=== PATIENT | male | born 1965 | race Caucasian/White ===

== ENCOUNTER 2019-06-10 16:21 | Emergency (ER) | payer MEDICAID, OTHER ==
[~2019-06-10 16:21] MED LIST: Ondansetron 4 MG Tab.DIS PO ONE
[2019-06-10] MEDS ORDERED: Prochlorperazine 10 MG/2 ML SDV IVPUSH ONE (16:33)
[2019-06-10] MEDS ORDERED: Sodium Chloride 0.9% 1,000 ML IV ONE (16:34)
[2019-06-10] MEDS ORDERED: diphenhydrAMINE 50 MG/ML SDV IVPUSH ONE (16:34)
--- NOTE | 2019-06-10 16:49 | EDM.PDOC ---
ED HPI GENERAL MEDICAL PROBLEM - General Chief Complaint: General Stated Complaint: DIZZINESS, VOMITING Time Seen by Provider: 06/10/19 16:30 Source of Information: Reports: Patient History Limitations: Reports: No Limitations - History of Present Illness INITIAL COMMENTS - FREE TEXT/NARRATIVE: John presents via EMS due to vomiting. He was well until about 40 minutes prior to arrival, when he had sudden onset of vertigo while standing in [place] friends. This lasted a few seconds, and has recurred 3 more times, and is associated with significant nausea. He denies headache, balance changes , paresthesias, or sensory deficit at all. He states that he is really worried about a brainstem stroke. 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 He denies any other cardiac history, in addition to prior CVA. John amoxicillin allergy was identified as a child. He denies other surgical history. He has not been ill at all, but has been exposed to several others with flu-type symptoms. He denies fever, myalgias, and h/a at all. No gi/gu sx's or abdominal pain. Has chronic pedal edema unchanged. No arthralgias, diaphoresis , angina, or shortness of breath. He ate eggs and sausage for breakfast, a sandwich for lunch, took a nap, and ate a large amount of candy. - Related Data Allergies Allergy/AdvReac Type Severity Reaction Status Date / Time amoxicillin Allergy Other Verified 06/10/19 16:33 ED ROS GENERAL - Review of Systems Review Of Systems: Comprehensive ROS is negative, except as noted in HPI. ED EXAM, GENERAL - Physical Exam Exam: See Below Exam Limited By: No Limitations General Appearance: Alert, WD/WN, No Apparent Distress Eye Exam: Bilateral Eye: EOMI, PERRL, Other (no nystagmus with Hallpike-Zain maneuvers) Ears: Normal External Exam, Normal Canal, Hearing Grossly Normal, Normal TMs Nose: Normal Inspection, Normal Mucosa Throat/Mouth: Normal Inspection, Normal Oropharynx, Normal Voice Head: Atraumatic, Normocephalic Neck: Normal Inspection, Supple, Non-Tender, Full Range of Motion Respiratory/Chest: No Respiratory Distress, Lungs Clear, Normal Breath Sounds Cardiovascular: Regular Rate, Rhythm, No Murmur GI/Abdominal: Normal Bowel Sounds, Soft, Non-Tender Back Exam: Normal Inspection, Full Range of Motion Extremities: Normal Inspection, Normal Range of Motion, Non-Tender, Pedal Edema (mild) Neurological: Alert, Oriented, CN II-XII Intact, Normal Cognition, No Motor/ Sensory Deficits Psychiatric: Anxious Skin Exam: Warm, Dry, Intact Lymphatic: No Adenopathy Course - Vital Signs Last Recorded V/S: Last Vital Signs Temp 98.3 F 06/10/19 17:56 Pulse 92 06/10/19 17:56 Resp 16 06/10/19 17:56 BP 126/60 06/10/19 17:56 Pulse Ox 95 06/10/19 17:56 - Orders/Labs/Meds Orders: Active Orders 24 hr Category Date Time Status EKG Documentation Completion [RC] ASDIRECTED Care 06/10/19 18:00 Active Labs: Laboratory Tests 06/10/19 06/10/19 06/10/19 Range/Units 16:30 16:30 16:30 WBC 8.6 (4.0-11.0) K/uL RBC 4.93 (4.50-6.50) M/uL Hgb 15.7 (13.0-18.0) g/dL Hct 45.0 (40.0-54.0) % MCV 91 (76-96) fL MCH 31.8 (27.0-32.0) pg MCHC 34.9 (31.0-35.0) g/dL RDW 12.4 (11.0-16.0) % Plt Count 251 (150-400) K/uL MPV 9.1 (6.0-10.0) fL Neut % (Auto) 57.5 (45.0-70.0) % Lymph % (Auto) 27.1 (20.0-40.0) % Luce % (Auto) 11.6 H (3.0-10.0) % Eos % (Auto) 3.4 (1.0-5.0) % Baso % (Auto) 0.4 (0.0-0.5) % Neut # (Auto) 4.93 (2.00-7.50) K/uL Lymph # (Auto) 2.32 (1.50-4.00) K/uL Luce # (Auto) 0.99 H (0.20-0.80) K/uL Eos # (Auto) 0.29 (0.04-0.40) K/uL Baso # (Auto) 0.03 (0.02-0.10) K/uL Sodium 142 (136-145) mmol/L Potassium 4.0 (3.5-5.1) mmol/L Chloride 105 (98-107) mmol/L Carbon Dioxide 24.3 (21.0-32.0) mmol/L Anion Gap 16.7 H (5.0-15.0) mmol/L BUN 17 (8-26) mg/dL Creatinine 0.87 (0.70-1.30) mg/dL Est Cr Clr Drug Dosing 3.63 mL/min Estimated GFR (MDRD) > 60 (>60) MLS/MIN BUN/Creatinine Ratio 19.5 (6-25) Glucose 136 H (74-100) mg/dL Calcium 8.9 (8.5-10.1) mg/dL Total Bilirubin 0.3 (0.0-1.0) mg/dL AST 26 (15-37) U/L ALT 35 (12-78) U/L Alkaline Phosphatase 106 (46-116) U/L Troponin I < 0.017 (0.000-0.060) ng/mL C-Reactive Protein 5.3 H (0.0-3.0) mg/L Total Protein 7.4 (6.4-8.2) g/dL Albumin 3.9 (3.4-5.0) g/dL Globulin 3.5 (2.2-4.2) g/dL Albumin/Globulin Ratio 1.1 (0.8-2.0) 06/10/19 Range/Units 18:00 WBC (4.0-11.0) K/uL RBC (4.50-6.50) M/uL Hgb (13.0-18.0) g/dL Hct (40.0-54.0) % MCV (76-96) fL MCH (27.0-32.0) pg MCHC (31.0-35.0) g/dL RDW (11.0-16.0) % Plt Count (150-400) K/uL MPV (6.0-10.0) fL Neut % (Auto) (45.0-70.0) % Lymph % (Auto) (20.0-40.0) % Luce % (Auto) (3.0-10.0) % Eos % (Auto) (1.0-5.0) % Baso % (Auto) (0.0-0.5) % Neut # (Auto) (2.00-7.50) K/uL Lymph # (Auto) (1.50-4.00) K/uL Luce # (Auto) (0.20-0.80) K/uL Eos # (Auto) (0.04-0.40) K/uL Baso # (Auto) (0.02-0.10) K/uL Sodium (136-145) mmol/L Potassium (3.5-5.1) mmol/L Chloride (98-107) mmol/L Carbon Dioxide (21.0-32.0) mmol/L Anion Gap (5.0-15.0) mmol/L BUN (8-26) mg/dL Creatinine (0.70-1.30) mg/dL Est Cr Clr Drug Dosing mL/min Estimated GFR (MDRD) (>60) MLS/MIN BUN/Creatinine Ratio (6-25) Glucose (74-100) mg/dL Calcium (8.5-10.1) mg/dL Total Bilirubin (0.0-1.0) mg/dL AST (15-37) U/L ALT (12-78) U/L Alkaline Phosphatase (46-116) U/L Troponin I < 0.017 (0.000-0.060) ng/mL C-Reactive Protein (0.0-3.0) mg/L Total Protein (6.4-8.2) g/dL Albumin (3.4-5.0) g/dL Globulin (2.2-4.2) g/dL Albumin/Globulin Ratio (0.8-2.0) Meds: Medications Discontinued Medications Generic Name Dose Route Start Last Admin Trade Name Freq PRN Reason Stop Dose Admin Acetaminophen 650 mg 06/10/19 17:04 06/10/19 17:07 Tylenol PO 650 mg Q4H PRN Administration HEADACHE Diphenhydramine HCl 50 mg 06/10/19 16:34 06/10/19 17:18 Benadryl IVPUSH 06/10/19 16:35 Not Given ONETIME ONE Sodium Chloride 1,000 mls @ 999 mls/hr 06/10/19 16:34 06/10/19 16:30 Normal Saline IV 06/10/19 17:34 999 mls/hr .BOLUS ONE Administration Methylprednisolone Sodium Succinate 125 mg 06/10/19 18:15 06/10/19 18:30 Solu-Medrol IVPUSH 06/10/19 18:16 125 mg ONETIME ONE Administration Methylprednisolone Sodium Succinate Confirm 06/10/19 18:32 Solu-Medrol Administered 06/10/19 18:33 Dose 125 mg .ROUTE .STK-MED ONE Ondansetron HCl 4 mg 06/10/19 16:17 06/10/19 16:21 Zofran Odt PO 06/10/19 16:18 4 mg ONETIME ONE Administration Prochlorperazine Edisylate 5 mg 06/10/19 16:33 06/10/19 16:39 Compazine IVPUSH 06/10/19 16:34 5 mg ONETIME ONE Administration Departure - Departure Time of Disposition: 16:15 Disposition: Home, Self-Care 01 Clinical Impression: Vertigo - Discharge Information Instructions: Vertigo Referrals: PCP,None [Primary Care Provider] - Forms: ED Department Discharge Additional Instructions: Please come back if things aren't right, otherwise see your physician for a recheck upon getting home. Start the prednisone tomorrow am and take 3 tablets Daily for Five days. Use the meclizine with any dizziness at 25 mg up to Three times a day as needed. Take it easy and stay hydrated. Sepsis Event Note - Focused Exam Date Exam was Performed: 06/11/19 Time Exam was Performed: 16:25 - My Orders Last 24 Hours: My Active Orders 06/10/19 18:00 EKG Documentation Completion [RC] ASDIRECTED - Assessment/Plan Last 24 Hours: My Active Orders 06/10/19 18:00 EKG Documentation Completion [RC] ASDIRECTED
[2019-06-10] MEDS ORDERED: predniSONE 10 MG Tab ONE (17:00)
[2019-06-10] MEDS ORDERED: Acetaminophen 325 MG Tab PO PRN (17:04)
[2019-06-10] MEDS ORDERED: methylPREDNISolone Sodium Succinate 125 MG/2 ML SDV IVPUSH ONE (18:15)
[2019-06-10] MEDS ORDERED: methylPREDNISolone Sodium Succinate 125 MG/2 ML SDV ONE (18:32)
--- NOTE | 2019-06-11 14:39 | CT ---
DATE OF SERVICE: 06/10/19 CLINICAL DATA: vomiting UNENHANCED BRAIN CT: Multi slice axial acquisition was performed. No priors. No masses or mass effect. No intracranial hemorrhage. No evidence of acute or subacute infarct. No osseous abnormalities. IMPRESSION: No acute intracranial abnormalities. [id number] [facility]
== END 2019-06-10 19:06 | disposition home or self-care (01) ==
LOC: LB.ED 16:21
DX: R42 Dizziness and giddiness (principal); Z88.0 Allergy status to penicillin; Z86.73 Personal history of transient ischemic attack (TIA), and cerebral infarction without residual deficits
CPT/HCPCS: 36415; 70450; 80053; 84484; 85025; 86140; 93005; 96361; 96374; 96375; 99284; A0425; A0429; A9270; J0780; J2930; J7030